=== PATIENT | male | born 1960 | race Caucasian/White ===

== ENCOUNTER → 2019-02-04 | Outpatient (CLI) | payer OTHER ==
--- NOTE | 2019-02-04 14:21 | RADIOLOGY IMAGING REPORT ---
FACILITY: [facility] [place] PATIENT NAME: Steven Avila : 1960 MR: [id number] V: [id number] EXAM DATE: ORDERING PHYSICIAN: CAROLYN COLLINS TECHNOLOGIST: [facility] Patient: Steven Avila : 1960 Visit/Account:[id number] Date of Sevice: 02/04/2019 Exam type: L-SPINE >4 VIEWS History: Low back pain radiates into left leg Comparison: None. Findings: Four views the lumbar spine are submitted. There are five nonrib-bearing lumbar-type vertebral lucille s present. There appears be mild loss of height of the superior endplate of L1. No subluxations are identified. This mild disc space narrowing at L5-S1 in addition to mild degenerative facet joint ch anges at this level IMPRESSION: 1. Mild degenerative changes at L5-S1 Suggestion of mild loss of height of the superior endplate of L1 Report Dictated By: Gema Reddy MD at 02/04/2019 2:15 PM Report E-Signed By: Gema Reddy MD at 02/04/2019 2:17 PM WSN:[email or web address]
== END ==
LOC: RAD 13:18
PROVIDERS: ATTEND Family Medicine
DX: M47.897 Other spondylosis, lumbosacral region (principal)
CPT/HCPCS: 72120